=== PATIENT | male | born 1965 | race Caucasian/White ===

== ENCOUNTER 2019-07-24 11:19 | Inpatient (IN) | payer MEDICAID, MEDICARE ==
[~2019-07-24] VITALS: Ht 180.3 cm; Wt 84.1 kg
[~2019-07-24 11:19] MED LIST: GUAN1TAB PO; IBUP-1984 PO; LISI-222 PO; TRAZ-91 PO
[2019-07-24 12:36] LABS: BASOPHILS # (AUTO) 0.1 X10'3 (0-0.2); EOSINOPHILS # (AUTO) 0.1 X10'3 (0-0.9); HEMATOCRIT 30.5 % (42.0-52.0); LYMPHOCYTES # (AUTO) 1.6 X10'3 (1.1-4.8); LYMPHOCYTES % (AUTO) 13.8 % (21-51); MEAN CORPUSCULAR HEMOGLOBIN 30.9 PG (27.0-31.0); MEAN CORPUSCULAR HGB CONC 32.7 g/dL (33.0-36.5); MEAN CORPUSCULAR VOLUME 94.3 FL (78-98); MEAN PLATELET VOLUME 7.6 FL (7.4-10.4); MONOCYTES # (AUTO) 1.2 X10'3 (0-0.9); MONOCYTES % (AUTO) 10.9 % (2-12); NEUTROPHILS # (AUTO) 8.3 X10'3 (1.8-7.7); NEUTROPHILS % (AUTO) 73.3 % (42-75); PLATELET COUNT 203 X10'3 (140-440); RED BLOOD COUNT 3.24 X10'6 (4.70-6.10); RED CELL DISTRIBUTION WIDTH 18.5 % (11.5-14.5); WHITE BLOOD COUNT 11.3 X10'3 (4.5-11.0)
[2019-07-24 12:41] LABS: ALANINE AMINOTRANSFERASE 52 U/L (12-78); ALBUMIN 2.2 G/DL (3.4-5.0); ALBUMIN/GLOBULIN RATIO 0.4 (1.1-1.5); ALKALINE PHOSPHATASE 123 IU/L (46-116); ANION GAP 9 (8-16); ASPARTATE AMINO TRANSFERASE 155 U/L (10-37); BILIRUBIN,TOTAL 1.8 MG/DL (0.1-1.0); BLOOD UREA NITROGEN 7 MG/DL (7-18); BUN/CREATININE RATIO 6.5 (5.4-32.0); CHLORIDE 105 MMOL/L (99-107); CREATININE 1.07 MG/DL (0.60-1.10); GLUCOSE 117 MG/DL (70-104); LIPASE 703 U/L (73-393); POTASSIUM 3.8 MMOL/L (3.5-5.1); SODIUM 136 MMOL/L (135-145); TOTAL CARBON DIOXIDE 22.3 MMOL/L (24-32); TOTAL PROTEIN 8.3 G/DL (6.4-8.2); eGFR 72 ML/MIN
[2019-07-24 13:33] LABS: CLARITY,URINE CLEAR (Clear); GLUCOSE, URINE NEGATIVE (Neg); KETONES,URINE 15 mg/dl (Neg); LEUKOCYTE ESTERASE ,URINE TRACE (Neg); NITRITES, URINE NEGATIVE (Neg); OCCULT BLOOD,URINE NEGATIVE (Neg); PH,URINE 5.5 (4.8-8.0); PROTEIN,URINE TRACE mg/dl (Neg)
[2019-07-24 13:39] LABS: COLOR,URINE DARK YELLOW (Yellow); UA COLLECTION TYPE URINAL
[2019-07-24 13:41] LABS: BACTERIA,URINE FEW /HPF (Neg); HYALINE CASTS 0-3 /LPF (NEGATIVE); MUCUS STRANDS FEW /LPF (Neg); RBC,URINE NONE SEEN /HPF (0-2); SQUAMOUS EPITHELIAL CELL,UR FEW /LPF (FEW)
[2019-07-24 13:51] LABS: PARTIAL THROMBOPLASTIN TIME 31 SECONDS (22-32)
--- NOTE | 2019-07-24 14:51 | NUR ---
US at bedside
[2019-07-24] MEDS: piperacillin/tazo 4.5gm/100ml 100 ML IV SCH ×2 (15:37→20:00)
[2019-07-24] MEDS ORDERED: mag hydrox/Alum hydrox/simeth 30ml oral suspension PO PRN (16:05)
[2019-07-24] MEDS ORDERED: ondansetron/PF 4mg/2ml inj IV PRN (16:05)
[2019-07-24] MEDS ORDERED: magnesium hydroxide 30ml (MOM) UD suspension PO PRN (16:05)
[2019-07-24] MEDS ORDERED: morphine 2 MG/ML inj. syringe IV PRN ×2 (16:05)
[2019-07-24] MEDS ORDERED: acetaminophen 325mg tablet PO PRN (16:05)
[2019-07-24] MEDS ORDERED: HYDROcodone/acetaminophen 5mg/325mg tablet PO PRN (16:05)
[2019-07-24] MEDS ORDERED: HYDROcodone/acetaminophen 10/325mg tab PO PRN (16:05)
--- NOTE | 2019-07-24 16:17 | NUR ---
Dr. Nieves at bedside to do Paracentesis.
[2019-07-24] MEDS ORDERED: QUET200T PO (16:22)
[2019-07-24] MEDS ORDERED: LISI30TA4 PO (16:22)
[2019-07-24] MEDS ORDERED: FLUO20CA39 PO (16:23)
[2019-07-24] MEDS ORDERED: ARIP5TAB4 PO (16:23)
--- NOTE | 2019-07-24 17:01 | NUR ---
PT PARACENTSIS DRAINING INTO URINAL IT HAS NOT BEEN ABLE TO WORK WITH SXN. PT HOMER WELL AT THIS TIME
--- NOTE | 2019-07-24 17:06 | NUR ---
paracentesis is still draining slowly into urinal. pt states he is ok. no obvious distress.
[2019-07-24 17:39] LABS: GLUCOSE,BODY FLUID 98 MG/DL; LDH,BODY FLUID 62 U/L
--- NOTE | 2019-07-24 17:40 | NUR ---
pt had 1400 ml of fluid drained from paracentesis. the tubing was not showing much flow so after speaking with MD Pichardo he said the drain can be pulled. drain pulled and dressing applied to abd. pt states he doesn't feel much difference.
[2019-07-24 18:14] LABS: BF MESOTHELIAL CELLS FEW; BF RBC COUNT 524 /CU MM; BF WBC COUNT 104 /CU MM (0-1000); BFAPPEAR CLEAR; BFCOLOR YELLOW; BFVOLUME 6.5 ML; LYMPHOCYTES,BODY FLUID 48 %; MONOCYTES,BODY FLUID 30 %; NEUTROPHILS,BODY FLUID 22 %
[2019-07-24] MEDS ORDERED: dextrose 50%-water 50ml dispensing syringe IV PRN (18:20)
[2019-07-24] MEDS ORDERED: thiamine inj. 100 MG in normal saline 100ml IV soln 100 ML IV ONE (18:20)
[2019-07-24] MEDS ORDERED: LORazepam 2 mg/ml vial IV PRN ×2 (18:20)
[2019-07-24 18:30] VITALS: BP 159/97
--- NOTE | 2019-07-24 18:30 | NUR ---
Patient in room [facility]. I have received report from Yue Salazar RN and had the opportunity to ask questions and assume patient care.
--- NOTE | 2019-07-24 18:30 | NUR ---
Problems reprioritized. Patient report given, questions answered & plan of care reviewed with Lambert SANDERSON.
[2019-07-24] MEDS ORDERED: pneumococcal 23-VAL P-sac vacc 25 mcg/0.5ml vial IMVAC ONE (19:50)
[2019-07-24] MEDS: quetiapine 100mg tablet PO SCH (20:53)
[2019-07-24] MEDS ORDERED: non-formulary drug (Quetiapine Fumarate (Seroquel) 1 TAB) PO SCH (21:00)
[2019-07-25] VITALS: BP 101/62
[2019-07-25 06:26] LABS: BASOPHILS % (AUTO) 0.5 % (0-1); EOSINOPHILS # (AUTO) 0.2 X10'3 (0-0.9); EOSINOPHILS % (AUTO) 2.2 % (0-6); HEMATOCRIT 25.6 % (42.0-52.0); HEMOGLOBIN 8.7 g/dl (14.0-17.9); LYMPHOCYTES # (AUTO) 1.8 X10'3 (1.1-4.8); LYMPHOCYTES % (AUTO) 21.9 % (21-51); MEAN CORPUSCULAR HEMOGLOBIN 31.7 PG (27.0-31.0); MEAN CORPUSCULAR HGB CONC 33.9 g/dL (33.0-36.5); MEAN CORPUSCULAR VOLUME 93.4 FL (78-98); MEAN PLATELET VOLUME 7.5 FL (7.4-10.4); MONOCYTES # (AUTO) 0.9 X10'3 (0-0.9); NEUTROPHILS # (AUTO) 5.3 X10'3 (1.8-7.7); NEUTROPHILS % (AUTO) 64.4 % (42-75); PLATELET COUNT 158 X10'3 (140-440); RED BLOOD COUNT 2.74 X10'6 (4.70-6.10); RED CELL DISTRIBUTION WIDTH 18.5 % (11.5-14.5); WHITE BLOOD COUNT 8.2 X10'3 (4.5-11.0)
--- NOTE | 2019-07-25 06:30 | NUR ---
Problems reprioritized. Patient report given, questions answered & plan of care reviewed with Ijeoma SANDERSON.
[2019-07-25 07:00] LABS: ALANINE AMINOTRANSFERASE 41 U/L (12-78); ALBUMIN 1.8 G/DL (3.4-5.0); ALBUMIN/GLOBULIN RATIO 0.3 (1.1-1.5); ALKALINE PHOSPHATASE 99 IU/L (46-116); ANION GAP 7 (8-16); ASPARTATE AMINO TRANSFERASE 105 U/L (10-37); BILIRUBIN,TOTAL 2.1 MG/DL (0.1-1.0); BLOOD UREA NITROGEN 7 MG/DL (7-18); BUN/CREATININE RATIO 6.7 (5.4-32.0); CALCIUM 8.1 MG/DL (8.5-10.1); CHLORIDE 106 MMOL/L (99-107); CREATININE 1.05 MG/DL (0.60-1.10); GLUCOSE 79 MG/DL (70-104); LIPASE 489 U/L (73-393); MAGNESIUM 1.6 MG/DL (1.5-2.4); PHOSPHORUS 2.9 MG/DL (2.3-4.5); POTASSIUM 3.6 MMOL/L (3.5-5.1); SODIUM 138 MMOL/L (135-145); TOTAL CARBON DIOXIDE 24.8 MMOL/L (24-32); eGFR 74 ML/MIN
--- NOTE | 2019-07-25 07:15 | NUR ---
Patient in room [facility]. I have received report from BEAU SANDERSON and had the opportunity to ask questions and assume patient care.
--- NOTE | 2019-07-25 07:17 | NUR ---
REPORT FROM NIKI SANDERSON NOT BEAU SANDERSON
[2019-07-25 08:00] VITALS: BP 125/70
[2019-07-25] MEDS ORDERED: non-formulary drug (Lisinopril 1 TAB) PO SCH (08:00)
[2019-07-25] MEDS ORDERED: Permethrin Cream 60gm TP ONE (08:10)
[2019-07-25] MEDS ORDERED: Permethrin 1% 59ml topical rinse TP ONE ×2 (08:10)
[2019-07-25] MEDS: furosemide 40mg tablet PO SCH (08:55)
[2019-07-25] MEDS: multivitamins, therapeutics tablet PO SCH (08:55)
[2019-07-25] MEDS: lisinopril 10 MG tablet PO SCH (08:56)
[2019-07-25] MEDS: folic acid 1mg tablet PO SCH (08:56)
[2019-07-25] MEDS: aripiprazole 5mg tablet PO SCH (08:56)
[2019-07-25] MEDS: thiamine 100mg tablet PO SCH (08:56)
[2019-07-25] MEDS: piperacillin/tazo 4.5gm/100ml 100 ML IV SCH ×2 (08:59→21:06)
[2019-07-25] MEDS: spironolactone 50 MG tablet PO SCH (08:59)
[2019-07-25 11:00] VITALS: BP 106/59
--- NOTE | 2019-07-25 14:54 | NUR ---
PER DR CUNNINGHAM, PT. NEEDS PARACENTESIS. ACTIVE ORDER HAS BEEN IN SINCE 07-24-19.
--- NOTE | 2019-07-25 18:04 | NUR ---
Problems reprioritized. Patient report given, questions answered & plan of care reviewed with INES SANDERSON.
--- NOTE | 2019-07-25 18:20 | NUR ---
Patient in room [facility]. I have received report from Ijeoma Qureshi and had the opportunity to ask questions and assume patient care. Addendum: 07/25/19 at 1820 by Fallon Ridley RN Amended: Links added.
[2019-07-25 20:00] VITALS: BP 104/70
[2019-07-25] MEDS: lactobacillus rhamnosus 10,000 MMU CELLS/CAPSULE PO SCH (21:05)
[2019-07-25] MEDS: quetiapine 100mg tablet PO SCH (21:05)
--- NOTE | 2019-07-25 21:26 | NUR ---
pt on lice isolation was treated for it on dayshift. denies pain or discomfort. abd very distended. no complaints of pain at this time.
--- NOTE | 2019-07-25 23:00 | NUR ---
resting eyes closed no s&s of distress.
[2019-07-26] VITALS: BP 100/66
--- NOTE | 2019-07-26 01:00 | NUR ---
pt resting without changes remains on isolation
--- NOTE | 2019-07-26 03:00 | NUR ---
resting eyes closed without changes.
--- NOTE | 2019-07-26 04:38 | NUR ---
resting eyes closed without changes.
[2019-07-26 06:14] LABS: BASOPHILS % (AUTO) 0.5 % (0-1); EOSINOPHILS # (AUTO) 0.2 X10'3 (0-0.9); EOSINOPHILS % (AUTO) 2.6 % (0-6); HEMATOCRIT 26.5 % (42.0-52.0); LYMPHOCYTES # (AUTO) 1.9 X10'3 (1.1-4.8); LYMPHOCYTES % (AUTO) 21.4 % (21-51); MEAN CORPUSCULAR HEMOGLOBIN 31.5 PG (27.0-31.0); MEAN CORPUSCULAR HGB CONC 33.8 g/dL (33.0-36.5); MEAN CORPUSCULAR VOLUME 93.2 FL (78-98); MEAN PLATELET VOLUME 7.5 FL (7.4-10.4); MONOCYTES % (AUTO) 11.4 % (2-12); NEUTROPHILS # (AUTO) 5.7 X10'3 (1.8-7.7); NEUTROPHILS % (AUTO) 64.1 % (42-75); PLATELET COUNT 165 X10'3 (140-440); RED BLOOD COUNT 2.85 X10'6 (4.70-6.10); RED CELL DISTRIBUTION WIDTH 18.4 % (11.5-14.5); WHITE BLOOD COUNT 8.8 X10'3 (4.5-11.0)
--- NOTE | 2019-07-26 06:15 | NUR ---
Patient in room [facility]. I have received report from Fallon SANDERSON and had the opportunity to ask questions and assume patient care.
--- NOTE | 2019-07-26 06:16 | NUR ---
Problems reprioritized. Patient report given, questions answered & plan of care reviewed with Daisy Qureshi. Addendum: 07/26/19 at 0616 by Fallon Ridley RN Amended: Links added.
[2019-07-26 06:34] LABS: ALANINE AMINOTRANSFERASE 37 U/L (12-78); ALBUMIN 1.7 G/DL (3.4-5.0); ALBUMIN/GLOBULIN RATIO 0.3 (1.1-1.5); ALKALINE PHOSPHATASE 102 IU/L (46-116); ANION GAP 8 (8-16); ASPARTATE AMINO TRANSFERASE 90 U/L (10-37); BLOOD UREA NITROGEN 7 MG/DL (7-18); BUN/CREATININE RATIO 6.4 (5.4-32.0); CHLORIDE 105 MMOL/L (99-107); GLUCOSE 83 MG/DL (70-104); LIPASE 570 U/L (73-393); MAGNESIUM 1.5 MG/DL (1.5-2.4); PHOSPHORUS 3.5 MG/DL (2.3-4.5); POTASSIUM 3.2 MMOL/L (3.5-5.1); SODIUM 139 MMOL/L (135-145); TOTAL CARBON DIOXIDE 26.4 MMOL/L (24-32); TOTAL PROTEIN 6.9 G/DL (6.4-8.2); eGFR 70 ML/MIN
[2019-07-26 07:00] VITALS: BP 124/75
[2019-07-26 08:00] VITALS: BP_SYST 110
[2019-07-26] MEDS: folic acid 1mg tablet PO SCH (08:03)
[2019-07-26] MEDS: piperacillin/tazo 4.5gm/100ml 100 ML IV SCH (08:03)
[2019-07-26] MEDS: multivitamins, therapeutics tablet PO SCH (08:03)
[2019-07-26] MEDS: aripiprazole 5mg tablet PO SCH (08:03)
[2019-07-26] MEDS: lactobacillus rhamnosus 10,000 MMU CELLS/CAPSULE PO SCH (08:03)
[2019-07-26] MEDS: spironolactone 50 MG tablet PO SCH (08:04)
[2019-07-26] MEDS: furosemide 40mg tablet PO SCH (08:04)
[2019-07-26] MEDS: thiamine 100mg tablet PO SCH (08:05)
[2019-07-26] MEDS: lisinopril 10 MG tablet PO SCH (08:05)
[2019-07-26] MEDS ORDERED: SPIR50TA5 PO (08:32)
[2019-07-26] MEDS ORDERED: FURO40TA4 PO (08:32)
[2019-07-26 11:35] VITALS: BP 103/66
--- NOTE | 2019-07-26 12:46 | NUR ---
Page sent to Dr. Garsia: PAGER ID: [phone] MESSAGE: [id number] RE: Vamshi Brink, patient did not have para done, per IR he does not have enough fluid to perform procedure. Patient will be discharged per your order. Thanks, Daisy Pickett
--- NOTE | 2019-07-26 13:41 | NUR ---
Patient discharged at 1340, patient is homeless and was provided with a bus pass. Patient reviewed discharge packet before signing. Patient had no belongings other than a red double bag of belongings he did not think were his. Called ED, Lost and Found and Admitting to see if the patient's belongings were in another location. No belongings were located anywhere else in the hospital. Patient was given a written Rx for his new medications. PIVs were d/c'd with cannula intact. Patient was wheeled down by axillary and discharged. Discussed with Surgical Director the issue with the patients belongings, she is contact the ED for more information.
[2019-07-27 15:18] LABS: HEPATITIS C ANTIBODY 0.2 s/co ratio (0.0-0.9)
== END 2019-07-26 13:34 | disposition home or self-care (01) | DRG 432 ==
LOC: ER 11:20 → SUR 3N 17:59
PROVIDERS: ADMIT Internal Medicine; ATTEND Internal Medicine
PROC: 0W9G3ZZ Drainage of Peritoneal Cavity, Percutaneous Approach (ICD-10-PCS; principal; 2019-07-24)
PROC: 3E0234Z Introduction of Serum, Toxoid and Vaccine into Muscle, Percutaneous Approach (ICD-10-PCS; 2019-07-24)
DX: K70.31 Alcoholic cirrhosis of liver with ascites (principal); E43 Unspecified severe protein-calorie malnutrition; K72.90 Hepatic failure, unspecified without coma; B85.2 Pediculosis, unspecified; E88.09 Other disorders of plasma-protein metabolism, not elsewhere classified; F17.200 Nicotine dependence, unspecified, uncomplicated; K80.20 Calculus of gallbladder without cholecystitis without obstruction; F32.9 Major depressive disorder, single episode, unspecified; I10 Essential (primary) hypertension; D64.9 Anemia, unspecified; F10.20 Alcohol dependence, uncomplicated; F41.9 Anxiety disorder, unspecified; R74.8 Abnormal levels of other serum enzymes; Z59.0 Homelessness; Z79.899 Other long term (current) drug therapy; Z23 Encounter for immunization; Z71.41 Alcohol abuse counseling and surveillance of alcoholic
CPT/HCPCS: 36415; 49083; 74176; 76700; 76705; 80053; 81001; 82945; 83615; 83690; 83735; 84100; 85025; 85610; 85730; 86706; 86803; 87070; 87081; 87088; 89051; 90732; 99285; G0378; J2543; J3411

== ENCOUNTER 2019-08-15 12:20 | Emergency (ER) | payer MEDICARE ==
[~2019-08-15] VITALS: Ht 180.3 cm; Wt 84.0 kg
[~2019-08-15 12:20] MED LIST changes: +ARIP5TAB4 PO; +FLUO20CA39 PO; +FURO40TA4 PO; -GUAN1TAB PO; -IBUP-1984 PO; -LISI-222 PO; +LISI30TA4 PO; +QUET200T PO; +SPIR50TA5 PO; -TRAZ-91 PO
[2019-08-15 12:51] LABS: BASOPHILS # (AUTO) 0.1 X10'3 (0-0.2); EOSINOPHILS # (AUTO) 0.3 X10'3 (0-0.9); EOSINOPHILS % (AUTO) 1.9 % (0-6); HEMATOCRIT 29.3 % (42.0-52.0); HEMOGLOBIN 9.8 g/dl (14.0-17.9); LYMPHOCYTES # (AUTO) 2.2 X10'3 (1.1-4.8); LYMPHOCYTES % (AUTO) 16.6 % (21-51); MEAN CORPUSCULAR HEMOGLOBIN 31.2 PG (27.0-31.0); MEAN CORPUSCULAR HGB CONC 33.4 g/dL (33.0-36.5); MEAN CORPUSCULAR VOLUME 93.4 FL (78-98); MEAN PLATELET VOLUME 6.7 FL (7.4-10.4); MONOCYTES # (AUTO) 1.2 X10'3 (0-0.9); MONOCYTES % (AUTO) 8.8 % (2-12); NEUTROPHILS # (AUTO) 9.4 X10'3 (1.8-7.7); NEUTROPHILS % (AUTO) 71.7 % (42-75); PLATELET COUNT 260 X10'3 (140-440); RED BLOOD COUNT 3.13 X10'6 (4.70-6.10); RED CELL DISTRIBUTION WIDTH 17.1 % (11.5-14.5); WHITE BLOOD COUNT 13.1 X10'3 (4.5-11.0)
[2019-08-15 13:03] LABS: ALANINE AMINOTRANSFERASE 37 U/L (12-78); ALBUMIN 1.9 G/DL (3.4-5.0); ALBUMIN/GLOBULIN RATIO 0.3 (1.1-1.5); ALKALINE PHOSPHATASE 104 IU/L (46-116); ANION GAP 10 (8-16); ASPARTATE AMINO TRANSFERASE 103 U/L (10-37); BILIRUBIN,TOTAL 0.9 MG/DL (0.1-1.0); BLOOD UREA NITROGEN 4 MG/DL (7-18); BUN/CREATININE RATIO 4.6 (5.4-32.0); CALCIUM 7.8 MG/DL (8.5-10.1); CHLORIDE 106 MMOL/L (99-107); CREATININE 0.87 MG/DL (0.60-1.10); GLUCOSE 105 MG/DL (70-104); POTASSIUM 3.6 MMOL/L (3.5-5.1); SODIUM 137 MMOL/L (135-145); TOTAL CARBON DIOXIDE 21.1 MMOL/L (24-32); TOTAL PROTEIN 8.7 G/DL (6.4-8.2); eGFR > 90 ML/MIN
--- NOTE | 2019-08-15 13:14 | NUR ---
PT STOOD AT BEDSIDE USED URINAL, URINE SENT TO LABS PER ORDERS, SET UP FOR PARACENTESIS AT BEDSIDE.
[2019-08-15 13:20] LABS: CLARITY,URINE CLEAR (Clear); COLOR,URINE YELLOW (Yellow); GLUCOSE, URINE NEGATIVE (Neg); KETONES,URINE NEGATIVE (Neg); LEUKOCYTE ESTERASE ,URINE NEGATIVE (Neg); NITRITES, URINE NEGATIVE (Neg); OCCULT BLOOD,URINE NEGATIVE (Neg); PROTEIN,URINE NEGATIVE (Neg); UROBILINOGEN,URINE 0.2 E.U/dL (0.2-1.0)
[2019-08-15 13:22] LABS: UA COLLECTION TYPE VOIDED
[2019-08-15 13:37] LABS: LIPASE 427 U/L (73-393)
[2019-08-15 13:51] VITALS: BP 134/85
== END 2019-08-15 14:05 | disposition home or self-care (01) ==
LOC: ER 12:21
DX: K70.31 Alcoholic cirrhosis of liver with ascites (principal); F10.10 Alcohol abuse, uncomplicated; I12.9 Hypertensive chronic kidney disease with stage 1 through stage 4 chronic kidney disease, or unspecified chronic kidney disease; E11.22 Type 2 diabetes mellitus with diabetic chronic kidney disease; N18.9 Chronic kidney disease, unspecified; F41.9 Anxiety disorder, unspecified; F32.9 Major depressive disorder, single episode, unspecified; Z56.0 Unemployment, unspecified; Z59.0 Homelessness; Z79.899 Other long term (current) drug therapy
CPT/HCPCS: 36415; 49083; 80053; 80320; 81003; 83690; 85025; 85610; 99284; 99285

== ENCOUNTER 2019-08-31 18:35 | Emergency (ER) | payer MEDICARE ==
[~2019-08-31] VITALS: Ht 180.3 cm; Wt 82.0 kg
[2019-08-31 19:21] LABS: BASOPHILS # (AUTO) 0.1 X10'3 (0-0.2); BASOPHILS % (AUTO) 0.6 % (0-1); EOSINOPHILS # (AUTO) 0.2 X10'3 (0-0.9); LYMPHOCYTES % (AUTO) 16.3 % (21-51); MEAN CORPUSCULAR HEMOGLOBIN 31.3 PG (27.0-31.0); MEAN CORPUSCULAR HGB CONC 33.4 g/dL (33.0-36.5); MEAN CORPUSCULAR VOLUME 93.5 FL (78-98); MEAN PLATELET VOLUME 7.1 FL (7.4-10.4); MONOCYTES # (AUTO) 1.2 X10'3 (0-0.9); MONOCYTES % (AUTO) 10.3 % (2-12); NEUTROPHILS # (AUTO) 8.5 X10'3 (1.8-7.7); NEUTROPHILS % (AUTO) 70.8 % (42-75); PLATELET COUNT 278 X10'3 (140-440); RED BLOOD COUNT 3.21 X10'6 (4.70-6.10); RED CELL DISTRIBUTION WIDTH 15.2 % (11.5-14.5)
[2019-08-31 19:22] LABS: ALANINE AMINOTRANSFERASE 29 U/L (12-78); ALBUMIN 1.8 G/DL (3.4-5.0); ALBUMIN/GLOBULIN RATIO 0.2 (1.1-1.5); ALKALINE PHOSPHATASE 120 IU/L (46-116); ANION GAP 9 (8-16); ASPARTATE AMINO TRANSFERASE 88 U/L (10-37); BILIRUBIN,TOTAL 1.2 MG/DL (0.1-1.0); BLOOD UREA NITROGEN 6 MG/DL (7-18); BUN/CREATININE RATIO 6.7 (5.4-32.0); CALCIUM 8.1 MG/DL (8.5-10.1); CHLORIDE 103 MMOL/L (99-107); CREATININE 0.89 MG/DL (0.60-1.10); GLUCOSE 97 MG/DL (70-104); LIPASE 556 U/L (73-393); POTASSIUM 3.5 MMOL/L (3.5-5.1); SODIUM 135 MMOL/L (135-145); TOTAL CARBON DIOXIDE 23.1 MMOL/L (24-32); TOTAL PROTEIN 9.2 G/DL (6.4-8.2); eGFR 89 ML/MIN
--- NOTE | 2019-08-31 20:39 | NUR ---
paracentesis complete without incident - 4 liters removed - pt reports ease in breathing.
[2019-08-31] MEDS ORDERED: FURO40TA4 PO (20:52)
[2019-08-31] MEDS ORDERED: SPIR50TA5 PO (20:52)
[2019-08-31 21:00] VITALS: BP 138/92
== END 2019-08-31 21:02 | disposition home or self-care (01) ==
LOC: ER 18:35
DX: R18.8 Other ascites (principal); R00.0 Tachycardia, unspecified; I12.9 Hypertensive chronic kidney disease with stage 1 through stage 4 chronic kidney disease, or unspecified chronic kidney disease; N18.9 Chronic kidney disease, unspecified; F41.9 Anxiety disorder, unspecified; F32.9 Major depressive disorder, single episode, unspecified; F17.210 Nicotine dependence, cigarettes, uncomplicated; Z56.0 Unemployment, unspecified; Z59.0 Homelessness; Z79.899 Other long term (current) drug therapy
CPT/HCPCS: 36415; 49083; 80053; 82140; 83690; 85025; 85610; 99283; 99285

== ENCOUNTER 2019-09-09 12:05 | Emergency (ER) | payer MEDICARE ==
[~2019-09-09] VITALS: Ht 180.3 cm; Wt 84.1 kg
[~2019-09-09 12:05] MED LIST changes: +ARIP5TAB14 PO; -ARIP5TAB4 PO
--- NOTE | 2019-09-09 12:33 | NUR ---
PT STATES HE IS FEELING HOPELESS AND CAN'T THINK OF A REASON TO KEEP LIVING, TEARFUL. PT STATES HE GETS DEPRESSED AND HAS BEEN HAVING SUICIDAL THOUGHTS OFF AND ON, WHEN ASKED DURING GENERAL ASSESSMENT SCREENING. PT DENIES ACTIVE SUICIDE PLAN, HAS NO TIMELINE. STATES HE TRIED TO CUT HIS WRISTS AT 6 YEARS OF AGE, DENIES ATTEMPTS AN ADULT
[2019-09-09 12:45] LABS: BASOPHILS # (AUTO) 0.1 X10'3 (0-0.2); BASOPHILS % (AUTO) 0.6 % (0-1); EOSINOPHILS # (AUTO) 0.2 X10'3 (0-0.9); EOSINOPHILS % (AUTO) 1.4 % (0-6); HEMATOCRIT 29.2 % (42.0-52.0); HEMOGLOBIN 9.9 g/dl (14.0-17.9); LYMPHOCYTES % (AUTO) 14.3 % (21-51); MEAN CORPUSCULAR HEMOGLOBIN 31.5 PG (27.0-31.0); MEAN CORPUSCULAR HGB CONC 33.7 g/dL (33.0-36.5); MEAN CORPUSCULAR VOLUME 93.4 FL (78-98); MEAN PLATELET VOLUME 6.7 FL (7.4-10.4); MONOCYTES # (AUTO) 1.4 X10'3 (0-0.9); MONOCYTES % (AUTO) 10.2 % (2-12); NEUTROPHILS # (AUTO) 10.3 X10'3 (1.8-7.7); NEUTROPHILS % (AUTO) 73.5 % (42-75); PLATELET COUNT 275 X10'3 (140-440); RED BLOOD COUNT 3.13 X10'6 (4.70-6.10); RED CELL DISTRIBUTION WIDTH 15.2 % (11.5-14.5)
[2019-09-09 12:59] LABS: PARTIAL THROMBOPLASTIN TIME 31 SECONDS (22-32)
[2019-09-09 13:03] LABS: ALANINE AMINOTRANSFERASE 30 U/L (12-78); ALBUMIN 1.7 G/DL (3.4-5.0); ALBUMIN/GLOBULIN RATIO 0.2 (1.1-1.5); ALKALINE PHOSPHATASE 98 IU/L (46-116); ANION GAP 9 (8-16); ASPARTATE AMINO TRANSFERASE 77 U/L (10-37); BILIRUBIN,TOTAL 1.4 MG/DL (0.1-1.0); BLOOD UREA NITROGEN 8 MG/DL (7-18); BUN/CREATININE RATIO 8.1 (5.4-32.0); CHLORIDE 95 MMOL/L (99-107); CREATININE 0.99 MG/DL (0.60-1.10); GLUCOSE 103 MG/DL (70-104); LIPASE 494 U/L (73-393); POTASSIUM 3.7 MMOL/L (3.5-5.1); SODIUM 127 MMOL/L (135-145); TOTAL CARBON DIOXIDE 23.1 MMOL/L (24-32); TOTAL PROTEIN 9.3 G/DL (6.4-8.2); eGFR 79 ML/MIN
[2019-09-09 13:25] LABS: ETHANOL 0.136 GM/DL (0.0-0.010)
[2019-09-09] MEDS ORDERED: normal saline 1000ML IV soln IVB ONE (13:55)
[2019-09-09 15:04] LABS: CLARITY,URINE SLIGHTLY CLOUDY (Clear); COLOR,URINE DARK YELLOW (Yellow); GLUCOSE, URINE NEGATIVE (Neg); KETONES,URINE 15 mg/dl (Neg); LEUKOCYTE ESTERASE ,URINE NEGATIVE (Neg); NITRITES, URINE NEGATIVE (Neg); OCCULT BLOOD,URINE NEGATIVE (Neg); PROTEIN,URINE TRACE mg/dl (Neg); UA COLLECTION TYPE URINAL
[2019-09-09 15:10] LABS: URINE AMPHETAMINE SCREEN NEGATIVE (Neg); URINE BARBITUATE SCREEN NEGATIVE (Neg); URINE BENZODIAZEPINES SCREEN NEGATIVE (Neg); URINE CANNABINOID SCREEN NEGATIVE (Neg); URINE COCAINE SCREEN NEGATIVE (Neg); URINE METHADONE SCREEN NEGATIVE (Neg); URINE OPIATE SCREEN NEGATIVE (Neg); URINE PHENCYCLIDINE SCREEN NEGATIVE (Neg)
[2019-09-09 15:11] LABS: BACTERIA,URINE FEW /HPF (Neg); HYALINE CASTS 0-3 /LPF (NEGATIVE); MUCUS STRANDS MANY /LPF (Neg); SQUAMOUS EPITHELIAL CELL,UR FEW /LPF (FEW); TRANSITIONAL EPI CELLS,URINE FEW /HPF; WBC,URINE 0-4 /HPF (0-4)
--- NOTE | 2019-09-09 16:00 | NUR ---
Packet faxed to [facility].
--- NOTE | 2019-09-09 16:55 | NUR ---
Patient states he is very depressed and feeling hopeless. Patient does not have a plan. Patient is homeless. Patient states he drinks everyday but not as much as he used to. Patient denies ever having a seizure but states he has gone through ETOH withdrawal. Continue to monitor.
[2019-09-09] MEDS ORDERED: LORazepam 1 MG tablet PO PRN (18:05)
[2019-09-09] MEDS ORDERED: cloNIDine 0.1 mg tablet PO PRN (18:05)
[2019-09-09] MEDS ORDERED: haloperidol 5mg tablet PO PRN (18:05)
[2019-09-09] MEDS ORDERED: folic acid 1mg tablet PO SCH (20:00)
[2019-09-09] MEDS ORDERED: thiamine 100mg tablet PO SCH (20:00)
--- NOTE | 2019-09-09 22:15 | NUR ---
[id number]: Pt resting on and off during this time. During 1:1 with RN, pt states vague SI, unable to provide an acuity number from 1-10 and has no plan. Pt states "I just have a lot of pain and my living situation gets the best of me sometimes. This is no way to live." Pt states he is feeling better since he has had treatment for his ascites but continues to have stomach pain. "It's just always there. I am tired of it." Pt is homeless and has no local family, but states he has a some homeless peers he conisders friends. Pt status is discharged. Pt is sleeping at this time.
--- NOTE | 2019-09-10 01:42 | NUR ---
Pt sleeping comfortably. No signs of distress.
--- NOTE | 2019-09-10 04:03 | NUR ---
Pt sleeping on left side, no signs of distress.
[2019-09-10 05:47] VITALS: BP 129/86
== END 2019-09-10 06:20 | disposition home or self-care (01) ==
LOC: ER 12:06
DX: K70.31 Alcoholic cirrhosis of liver with ascites (principal); I10 Essential (primary) hypertension; F10.99 Alcohol use, unspecified with unspecified alcohol-induced disorder; E87.1 Hypo-osmolality and hyponatremia; I12.9 Hypertensive chronic kidney disease with stage 1 through stage 4 chronic kidney disease, or unspecified chronic kidney disease; N18.9 Chronic kidney disease, unspecified; F41.9 Anxiety disorder, unspecified; F32.9 Major depressive disorder, single episode, unspecified; F17.210 Nicotine dependence, cigarettes, uncomplicated; Z59.0 Homelessness; Z56.0 Unemployment, unspecified; Z79.899 Other long term (current) drug therapy; Y90.0 Blood alcohol level of less than 20 mg/100 ml
CPT/HCPCS: 36415; 49083; 80053; 80305; 80320; 81001; 83690; 85025; 85610; 85730; 99285; J7030

== ENCOUNTER 2019-09-29 12:39 | Inpatient (IN) | payer MEDICARE ==
[~2019-09-29] VITALS: Ht 180.3 cm; Wt 84.1 kg
[2019-09-29] MEDS ORDERED: furosemide 10 MG/1 ML 10ml inj IV ONE (12:50)
[2019-09-29] MEDS ORDERED: fentaNYL/PF 50MCG/1 ML 2ML syringe IV ONE (12:50)
[2019-09-29 13:13] LABS: BASOPHILS % (AUTO) 0.3 % (0-1); EOSINOPHILS # (AUTO) 0.1 X10'3 (0-0.9); EOSINOPHILS % (AUTO) 0.6 % (0-6); HEMATOCRIT 29.1 % (42.0-52.0); HEMOGLOBIN 9.7 g/dl (14.0-17.9); LYMPHOCYTES # (AUTO) 1.8 X10'3 (1.1-4.8); LYMPHOCYTES % (AUTO) 13.3 % (21-51); MEAN CORPUSCULAR HEMOGLOBIN 30.7 PG (27.0-31.0); MEAN CORPUSCULAR HGB CONC 33.3 g/dL (33.0-36.5); MEAN CORPUSCULAR VOLUME 92.2 FL (78-98); MEAN PLATELET VOLUME 6.2 FL (7.4-10.4); MONOCYTES # (AUTO) 1.3 X10'3 (0-0.9); MONOCYTES % (AUTO) 9.5 % (2-12); NEUTROPHILS # (AUTO) 10.3 X10'3 (1.8-7.7); NEUTROPHILS % (AUTO) 76.3 % (42-75); PLATELET COUNT 327 X10'3 (140-440); RED BLOOD COUNT 3.15 X10'6 (4.70-6.10); WHITE BLOOD COUNT 13.5 X10'3 (4.5-11.0)
[2019-09-29 13:32] LABS: ALANINE AMINOTRANSFERASE 26 U/L (12-78); ALBUMIN 1.7 G/DL (3.4-5.0); ALBUMIN/GLOBULIN RATIO 0.2 (1.1-1.5); ALKALINE PHOSPHATASE 87 IU/L (46-116); ANION GAP 12 (8-16); ASPARTATE AMINO TRANSFERASE 64 U/L (10-37); BILIRUBIN,TOTAL 1.6 MG/DL (0.1-1.0); BLOOD UREA NITROGEN 7 MG/DL (7-18); BUN/CREATININE RATIO 7.4 (5.4-32.0); CALCIUM 8.1 MG/DL (8.5-10.1); CHLORIDE 93 MMOL/L (99-107); CREATININE 0.94 MG/DL (0.60-1.10); GLUCOSE 104 MG/DL (70-104); POTASSIUM 3.9 MMOL/L (3.5-5.1); SODIUM 126 MMOL/L (135-145); TOTAL CARBON DIOXIDE 21.1 MMOL/L (24-32); TOTAL PROTEIN 8.7 G/DL (6.4-8.2); eGFR 84 ML/MIN
[2019-09-29 13:35] LABS: ETHANOL 0.016 GM/DL (0.0-0.010); TROPONIN I < 0.04 NG/ML (0.0-0.05)
[2019-09-29] MEDS ORDERED: lactulose 20gm/30ml cup PO ONE (13:45)
[2019-09-29] MEDS ORDERED: piperacillin/tazo 3.375gm/50ml 50 ML IV ONE (13:45)
[2019-09-29] MEDS ORDERED: SPIR50TA PO (14:26)
[2019-09-29] MEDS ORDERED: FURO-149 PO (14:26)
[2019-09-29] MEDS ORDERED: SPIR100T5 PO (14:26)
[2019-09-29] MEDS ORDERED: ondansetron/PF 4mg/2ml inj IV PRN (15:05)
[2019-09-29] MEDS ORDERED: magnesium 2GM in 50ml NS 50 ML IV PRN (15:05)
[2019-09-29] MEDS ORDERED: magnesium 4gm in 100ml NS 100 ML IV PRN (15:05)
[2019-09-29] MEDS ORDERED: magnesium Cl slow-release 64mg tablet PO PRN (15:05)
[2019-09-29 15:45] LABS: CLARITY,URINE CLEAR (Clear); COLOR,URINE YELLOW (Yellow); GLUCOSE, URINE NEGATIVE (Neg); KETONES,URINE NEGATIVE (Neg); LEUKOCYTE ESTERASE ,URINE NEGATIVE (Neg); NITRITES, URINE NEGATIVE (Neg); OCCULT BLOOD,URINE NEGATIVE (Neg); PH,URINE 6.5 (4.8-8.0); PROTEIN,URINE NEGATIVE (Neg); UA COLLECTION TYPE NON-SPECIFIED; UROBILINOGEN,URINE 0.2 E.U/dL (0.2-1.0)
--- NOTE | 2019-09-29 17:16 | NUR ---
called ER, they told me they will call back.
--- NOTE | 2019-09-29 17:29 | NUR ---
Patient in room ED 5. I have received report from Gilbert SANDERSON and had the opportunity to ask questions and assume patient care.
[2019-09-29 17:54] VITALS: BP 119/86
[2019-09-29 18:00] VITALS: BP 130/77
--- NOTE | 2019-09-29 18:15 | NUR ---
Problems reprioritized. Patient report given, questions answered & plan of care reviewed with Mimi SANDERSON.
--- NOTE | 2019-09-29 18:20 | NUR ---
Received patient report from KIN Clemons. Assumed patient care.
[2019-09-29 22:00] VITALS: BP 98/63
[2019-09-30 04:35] LABS: BASOPHILS # (AUTO) 0.1 X10'3 (0-0.2); BASOPHILS % (AUTO) 0.6 % (0-1); EOSINOPHILS # (AUTO) 0.2 X10'3 (0-0.9); EOSINOPHILS % (AUTO) 1.4 % (0-6); HEMATOCRIT 25.3 % (42.0-52.0); HEMOGLOBIN 8.8 g/dl (14.0-17.9); LYMPHOCYTES # (AUTO) 1.5 X10'3 (1.1-4.8); LYMPHOCYTES % (AUTO) 14.1 % (21-51); MEAN CORPUSCULAR HEMOGLOBIN 31.7 PG (27.0-31.0); MEAN CORPUSCULAR HGB CONC 34.9 g/dL (33.0-36.5); MEAN CORPUSCULAR VOLUME 90.8 FL (78-98); MEAN PLATELET VOLUME 6.1 FL (7.4-10.4); MONOCYTES # (AUTO) 1.1 X10'3 (0-0.9); MONOCYTES % (AUTO) 10.2 % (2-12); NEUTROPHILS % (AUTO) 73.7 % (42-75); PLATELET COUNT 307 X10'3 (140-440); RED BLOOD COUNT 2.78 X10'6 (4.70-6.10); WHITE BLOOD COUNT 10.8 X10'3 (4.5-11.0)
[2019-09-30 04:41] LABS: ALBUMIN 1.5 G/DL (3.4-5.0); ANION GAP 8 (8-16); BLOOD UREA NITROGEN 8 MG/DL (7-18); BUN/CREATININE RATIO 7.6 (5.4-32.0); CALCIUM 8.2 MG/DL (8.5-10.1); CHLORIDE 94 MMOL/L (99-107); CREATININE 1.05 MG/DL (0.60-1.10); GLUCOSE 85 MG/DL (70-104); MAGNESIUM 1.7 MG/DL (1.5-2.4); POTASSIUM 3.6 MMOL/L (3.5-5.1); SODIUM 128 MMOL/L (135-145); TOTAL CARBON DIOXIDE 26.2 MMOL/L (24-32); eGFR 74 ML/MIN
--- NOTE | 2019-09-30 06:14 | NUR ---
Patient report given, questions answered and plan of care reviewed with KIN Ludwig.
[2019-09-30 06:36] VITALS: BP 113/76
[2019-09-30] MEDS: CefTRIAXone/D5W-Rocephin 1gm 50 ML IV SCH (07:36)
[2019-09-30 10:34] VITALS: BP 107/74
[2019-09-30 18:00] VITALS: BP 104/74
--- NOTE | 2019-09-30 18:25 | NUR ---
Received report from from KIN Ludwig. Assumed patient care.
[2019-09-30 22:00] VITALS: BP 129/69
[2019-10-01 06:08] LABS: BASOPHILS # (AUTO) 0.1 X10'3 (0-0.2); BASOPHILS % (AUTO) 0.8 % (0-1); EOSINOPHILS # (AUTO) 0.2 X10'3 (0-0.9); EOSINOPHILS % (AUTO) 1.7 % (0-6); LYMPHOCYTES # (AUTO) 1.7 X10'3 (1.1-4.8); LYMPHOCYTES % (AUTO) 18.1 % (21-51); MEAN CORPUSCULAR HEMOGLOBIN 31.8 PG (27.0-31.0); MEAN CORPUSCULAR HGB CONC 34.8 g/dL (33.0-36.5); MEAN CORPUSCULAR VOLUME 91.4 FL (78-98); MONOCYTES # (AUTO) 1.2 X10'3 (0-0.9); MONOCYTES % (AUTO) 12.4 % (2-12); NEUTROPHILS # (AUTO) 6.4 X10'3 (1.8-7.7); PLATELET COUNT 263 X10'3 (140-440); RED BLOOD COUNT 2.51 X10'6 (4.70-6.10); RED CELL DISTRIBUTION WIDTH 15.2 % (11.5-14.5); WHITE BLOOD COUNT 9.5 X10'3 (4.5-11.0)
--- NOTE | 2019-10-01 06:12 | NUR ---
Patient report given, questions answered and plan of care reviewed with KIN Ludwig.
[2019-10-01 06:20] LABS: ALBUMIN 1.4 G/DL (3.4-5.0); ANION GAP 8 (8-16); BLOOD UREA NITROGEN 11 MG/DL (7-18); BUN/CREATININE RATIO 9.9 (5.4-32.0); CALCIUM 7.9 MG/DL (8.5-10.1); CHLORIDE 98 MMOL/L (99-107); CREATININE 1.11 MG/DL (0.60-1.10); GLUCOSE 94 MG/DL (70-104); MAGNESIUM 1.8 MG/DL (1.5-2.4); POTASSIUM 3.5 MMOL/L (3.5-5.1); SODIUM 131 MMOL/L (135-145); TOTAL CARBON DIOXIDE 25.2 MMOL/L (24-32); eGFR 69 ML/MIN
[2019-10-01 06:34] VITALS: BP 105/73
[2019-10-01] MEDS: CefTRIAXone/D5W-Rocephin 1gm 50 ML IV SCH (07:12)
[2019-10-01] MEDS: lisinopril 10 MG tablet PO SCH (11:17)
[2019-10-01] MEDS: aripiprazole 5mg tablet PO SCH (11:18)
--- NOTE | 2019-10-01 14:30 | NUR ---
Received patient report from Vani SANDERSON
[2019-10-01 18:00] VITALS: BP 108/75
--- NOTE | 2019-10-01 18:17 | NUR ---
Patient report given to Kayla Edwards RN
--- NOTE | 2019-10-01 18:38 | NUR ---
Patient in room [facility]24. I have received report from KIN Ledbetter and had the opportunity to ask questions and assume patient care.
[2019-10-01] MEDS: quetiapine 100mg tablet PO SCH (20:03)
[2019-10-01] MEDS: furosemide 40mg/4ml inj IV SCH (20:03)
[2019-10-01] MEDS: lactobacillus rhamnosus 10,000 MMU CELLS/CAPSULE PO SCH (20:03)
[2019-10-02] VITALS (9 sets, daily range): BP systolic 88–110; BP diastolic 59–75
--- NOTE | 2019-10-02 06:00 | NUR ---
Patient in room [facility]24. I have received report from Kayla Edwards RN and had the opportunity to ask questions and assume patient care.
--- NOTE | 2019-10-02 06:20 | NUR ---
Problems reprioritized. Patient report given, questions answered & plan of care reviewed with KIN Nguyen.
[2019-10-02 06:43] LABS: BASOPHILS # (AUTO) 0.1 X10'3 (0-0.2); BASOPHILS % (AUTO) 0.8 % (0-1); EOSINOPHILS # (AUTO) 0.2 X10'3 (0-0.9); HEMATOCRIT 22.8 % (42.0-52.0); HEMOGLOBIN 7.7 g/dl (14.0-17.9); LYMPHOCYTES # (AUTO) 1.9 X10'3 (1.1-4.8); LYMPHOCYTES % (AUTO) 24.4 % (21-51); MEAN CORPUSCULAR HEMOGLOBIN 31.3 PG (27.0-31.0); MEAN CORPUSCULAR VOLUME 92.1 FL (78-98); MEAN PLATELET VOLUME 6.3 FL (7.4-10.4); NEUTROPHILS # (AUTO) 4.6 X10'3 (1.8-7.7); NEUTROPHILS % (AUTO) 59.8 % (42-75); PLATELET COUNT 257 X10'3 (140-440); RED BLOOD COUNT 2.47 X10'6 (4.70-6.10); RED CELL DISTRIBUTION WIDTH 14.6 % (11.5-14.5); WHITE BLOOD COUNT 7.7 X10'3 (4.5-11.0)
[2019-10-02 06:53] LABS: ALBUMIN 1.4 G/DL (3.4-5.0); ANION GAP 8 (8-16); BLOOD UREA NITROGEN 11 MG/DL (7-18); BUN/CREATININE RATIO 9.9 (5.4-32.0); CALCIUM 7.8 MG/DL (8.5-10.1); CHLORIDE 101 MMOL/L (99-107); CREATININE 1.11 MG/DL (0.60-1.10); GLUCOSE 94 MG/DL (70-104); MAGNESIUM 1.8 MG/DL (1.5-2.4); POTASSIUM 3.4 MMOL/L (3.5-5.1); SODIUM 135 MMOL/L (135-145); eGFR 69 ML/MIN
[2019-10-02] MEDS ORDERED: potassium CL 10mEq/100ml bag 100 ML IV PRN (07:45)
[2019-10-02] MEDS ORDERED: potassium Cl 20 mEq SR tablet PO PRN (07:45)
[2019-10-02] MEDS: aripiprazole 5mg tablet PO SCH (07:52)
[2019-10-02] MEDS: lisinopril 10 MG tablet PO SCH (07:52)
[2019-10-02] MEDS: lactobacillus rhamnosus 10,000 MMU CELLS/CAPSULE PO SCH ×2 (07:52→20:28)
[2019-10-02] MEDS: furosemide 40mg/4ml inj IV SCH ×2 (07:52→20:00)
[2019-10-02] MEDS: CefTRIAXone/D5W-Rocephin 1gm 50 ML IV SCH (07:52)
[2019-10-02] MEDS: potassium Cl 20 mEq SR tablet PO PRN ×3 (07:52→21:19)
[2019-10-02] MEDS ORDERED: albumin (human) 25% 100 ML IV solution IV ONE (13:45)
--- NOTE | 2019-10-02 16:24 | NUR ---
Malnutrition consult. Patient presents with sepsis, abdominal pain for three months, history of EtOH liver disease and is currently homeless, social service consult made per MD note. pt continues to drink per H&P. He has a good appetite, eating 75-100% average. No malnutrition present. No weight loss recently per documented patient stated weights however weight fluctuations may occur d/t ascites, Pt does currently have ascites, documented as 4+ severe along with negative fluid balance. Would benefit from thiamine and folic acid in view of EtOH history. Pt is meeting nutrition needs and protein needs in view of sepsis; may benefit from low sodium diet in view of ascites, notified MD. Recommend: 1. In view of ascites may benefit from low sodium diet 2. Consider folic acid and thiamine in view of EtOH 3. Weight per rx Addendum: 10/02/19 at [address] Amended: Links added.
--- NOTE | 2019-10-02 18:19 | NUR ---
Patient in room [facility] 4024. I have received report from Nicole SANDERSON and had the opportunity to ask questions and assume patient care.
--- NOTE | 2019-10-02 18:30 | NUR ---
Patient in room [facility] 4024. I have received report from KIN Nguyen and had the opportunity to ask questions and assume patient care.
[2019-10-02] MEDS: quetiapine 100mg tablet PO SCH (20:28)
[2019-10-03 06:00] VITALS: BP 80/50
--- NOTE | 2019-10-03 06:24 | NUR ---
received report from kori sanz
--- NOTE | 2019-10-03 06:24 | NUR ---
Problems reprioritized. Patient report given, questions answered & plan of care reviewed with KIN Chaudhari.
[2019-10-03 06:25] LABS: BASOPHILS # (AUTO) 0.1 X10'3 (0-0.2); BASOPHILS % (AUTO) 0.8 % (0-1); EOSINOPHILS # (AUTO) 0.2 X10'3 (0-0.9); EOSINOPHILS % (AUTO) 1.9 % (0-6); HEMATOCRIT 22.8 % (42.0-52.0); HEMOGLOBIN 7.7 g/dl (14.0-17.9); LYMPHOCYTES # (AUTO) 1.9 X10'3 (1.1-4.8); LYMPHOCYTES % (AUTO) 21.8 % (21-51); MEAN CORPUSCULAR HEMOGLOBIN 31.1 PG (27.0-31.0); MEAN CORPUSCULAR HGB CONC 33.8 g/dL (33.0-36.5); MEAN CORPUSCULAR VOLUME 91.8 FL (78-98); MEAN PLATELET VOLUME 6.1 FL (7.4-10.4); MONOCYTES # (AUTO) 1.1 X10'3 (0-0.9); MONOCYTES % (AUTO) 12.6 % (2-12); NEUTROPHILS # (AUTO) 5.4 X10'3 (1.8-7.7); NEUTROPHILS % (AUTO) 62.9 % (42-75); PLATELET COUNT 263 X10'3 (140-440); RED BLOOD COUNT 2.49 X10'6 (4.70-6.10); RED CELL DISTRIBUTION WIDTH 15.1 % (11.5-14.5); WHITE BLOOD COUNT 8.5 X10'3 (4.5-11.0)
[2019-10-03 06:34] LABS: % IRON SATURATION 13 % (11-46); IRON 25 UG/DL (53-167); TOTAL IRON BINDING CAPACITY 197 UG/DL (259-388)
[2019-10-03 06:42] LABS: ALANINE AMINOTRANSFERASE 26 U/L (12-78); ALBUMIN 1.4 G/DL (3.4-5.0); ALBUMIN/GLOBULIN RATIO 0.3 (1.1-1.5); ALKALINE PHOSPHATASE 79 IU/L (46-116); ANION GAP 6 (8-16); ASPARTATE AMINO TRANSFERASE 68 U/L (10-37); BILIRUBIN,DIRECT 0.4 MG/DL (0-0.3); BLOOD UREA NITROGEN 10 MG/DL (7-18); BUN/CREATININE RATIO 9.5 (5.4-32.0); CALCIUM 7.6 MG/DL (8.5-10.1); CHLORIDE 101 MMOL/L (99-107); CREATININE 1.05 MG/DL (0.60-1.10); GLUCOSE 89 MG/DL (70-104); MAGNESIUM 1.6 MG/DL (1.5-2.4); POTASSIUM 3.7 MMOL/L (3.5-5.1); SODIUM 133 MMOL/L (135-145); TOTAL CARBON DIOXIDE 25.8 MMOL/L (24-32); TOTAL PROTEIN 6.9 G/DL (6.4-8.2); eGFR 74 ML/MIN
[2019-10-03] MEDS: CefTRIAXone/D5W-Rocephin 1gm 50 ML IV SCH (07:20)
[2019-10-03] MEDS: aripiprazole 5mg tablet PO SCH (07:22)
[2019-10-03] MEDS: lactobacillus rhamnosus 10,000 MMU CELLS/CAPSULE PO SCH (07:22)
[2019-10-03 07:30] VITALS: BP 90/60
[2019-10-03] MEDS: furosemide 40mg/4ml inj IV SCH (07:30)
[2019-10-03] MEDS: lisinopril 10 MG tablet PO SCH (07:30)
[2019-10-03 10:00] VITALS: BP 108/67
[2019-10-03] MEDS ORDERED: LACT10SO PO (12:05)
[2019-10-03] MEDS ORDERED: SPIR50TA PO (12:05)
[2019-10-03] MEDS ORDERED: CEFD300C3 PO (12:05)
[2019-10-03] MEDS ORDERED: PROP10TA10 PO (12:05)
[2019-10-03] MEDS ORDERED: FURO-149 PO (12:05)
--- NOTE | 2019-10-03 12:34 | NUR ---
PT D/C W/INSTRUCTIONS UNDERSTANDING OF INSTRUCTIONS, AND W/ALL BELONGINGS, INCLUDING CLOTHING AND A LUNCH, IN WHEELCHAIR ACCOMPANIED BY NURSING STAFF TO CAB TO GO TO [facility] AND F/U W/PCP
== END 2019-10-03 12:30 | disposition home or self-care (01) | DRG 871 ==
LOC: ER 12:40 → ED HOLD 15:04 → EDBEDREQ 17:17 → ORTHO 4S 17:45
PROVIDERS: ADMIT Internal Medicine; ATTEND Hospitalist
PROC: 0W9G3ZZ Drainage of Peritoneal Cavity, Percutaneous Approach (ICD-10-PCS; principal; 2019-10-02)
DX: A41.9 Sepsis, unspecified organism (principal); K65.2 Spontaneous bacterial peritonitis; E87.1 Hypo-osmolality and hyponatremia; F10.129 Alcohol abuse with intoxication, unspecified; I12.9 Hypertensive chronic kidney disease with stage 1 through stage 4 chronic kidney disease, or unspecified chronic kidney disease; K70.31 Alcoholic cirrhosis of liver with ascites; F32.9 Major depressive disorder, single episode, unspecified; F41.9 Anxiety disorder, unspecified; D64.9 Anemia, unspecified; E87.70 Fluid overload, unspecified; F17.200 Nicotine dependence, unspecified, uncomplicated; N18.9 Chronic kidney disease, unspecified; Z82.49 Family history of ischemic heart disease and other diseases of the circulatory system; Z83.3 Family history of diabetes mellitus; Z59.0 Homelessness; Z79.899 Other long term (current) drug therapy
CPT/HCPCS: 36415; 49083; 71045; 80048; 80053; 80076; 80320; 81003; 82140; 83540; 83550; 83605; 83735; 84145; 84484; 85025; 85610; 87040; 87081; 93005; 96365; 96375; 99285; G0378; J0696; J1940; J2543; J3010; P9047

== ENCOUNTER 2019-10-13 01:12 | Emergency (ER) | payer MEDICARE ==
[~2019-10-13] VITALS: Ht 180.3 cm; Wt 81.0 kg
[~2019-10-13 01:12] MED LIST changes: +CEFD300C3 PO; +FURO-149 PO; -FURO40TA4 PO; +LACT10SO PO; -LISI30TA4 PO; +PROP10TA10 PO; +SPIR50TA PO; -SPIR50TA5 PO
[2019-10-13 01:38] LABS: BASOPHILS # (AUTO) 0.1 X10'3 (0-0.2); BASOPHILS % (AUTO) 0.7 % (0-1); EOSINOPHILS # (AUTO) 0.3 X10'3 (0-0.9); EOSINOPHILS % (AUTO) 2.7 % (0-6); HEMATOCRIT 24.8 % (42.0-52.0); HEMOGLOBIN 8.4 g/dl (14.0-17.9); LYMPHOCYTES # (AUTO) 2.6 X10'3 (1.1-4.8); LYMPHOCYTES % (AUTO) 24.1 % (21-51); MEAN CORPUSCULAR HEMOGLOBIN 30.2 PG (27.0-31.0); MEAN CORPUSCULAR HGB CONC 33.9 g/dL (33.0-36.5); MEAN CORPUSCULAR VOLUME 89.3 FL (78-98); MEAN PLATELET VOLUME 6.7 FL (7.4-10.4); MONOCYTES % (AUTO) 9.1 % (2-12); NEUTROPHILS # (AUTO) 6.9 X10'3 (1.8-7.7); NEUTROPHILS % (AUTO) 63.4 % (42-75); PLATELET COUNT 327 X10'3 (140-440); RED BLOOD COUNT 2.78 X10'6 (4.70-6.10); RED CELL DISTRIBUTION WIDTH 15.1 % (11.5-14.5); WHITE BLOOD COUNT 10.9 X10'3 (4.5-11.0)
[2019-10-13 01:42] LABS: ALANINE AMINOTRANSFERASE 35 U/L (12-78); ALBUMIN 1.8 G/DL (3.4-5.0); ALBUMIN/GLOBULIN RATIO 0.3 (1.1-1.5); ALKALINE PHOSPHATASE 117 IU/L (46-116); ANION GAP 9 (8-16); ASPARTATE AMINO TRANSFERASE 76 U/L (10-37); BLOOD UREA NITROGEN 8 MG/DL (7-18); BUN/CREATININE RATIO 7.5 (5.4-32.0); CALCIUM 8.2 MG/DL (8.5-10.1); CHLORIDE 109 MMOL/L (99-107); CREATININE 1.07 MG/DL (0.60-1.10); GLUCOSE 77 MG/DL (70-104); LIPASE 947 U/L (73-393); POTASSIUM 3.5 MMOL/L (3.5-5.1); SODIUM 140 MMOL/L (135-145); TOTAL CARBON DIOXIDE 21.7 MMOL/L (24-32); TOTAL PROTEIN 8.6 G/DL (6.4-8.2); eGFR 72 ML/MIN
--- NOTE | 2019-10-13 02:12 | NUR ---
PT GIVEN URINAL AND ASKED TO PROVIDE URINE SAMPLE. HE STATES HE DOESN'T THINK HE CAN VOID AT THIS TIME. ENCOURAGED HIM TO AT LEAST TRY.
[2019-10-13 02:29] LABS: CLARITY,URINE CLEAR (Clear); COLOR,URINE YELLOW (Yellow); GLUCOSE, URINE NEGATIVE (Neg); KETONES,URINE NEGATIVE (Neg); LEUKOCYTE ESTERASE ,URINE NEGATIVE (Neg); NITRITES, URINE NEGATIVE (Neg); OCCULT BLOOD,URINE TRACE-INTACT (Neg); PH,URINE 6.5 (4.8-8.0); PROTEIN,URINE NEGATIVE (Neg)
[2019-10-13 02:30] LABS: UA COLLECTION TYPE VOIDED
[2019-10-13 02:36] LABS: BACTERIA,URINE FEW /HPF (Neg); RBC,URINE 0-2 /HPF (0-2); SQUAMOUS EPITHELIAL CELL,UR FEW /LPF (FEW); WBC,URINE 0-4 /HPF (0-4)
[2019-10-13 02:37] LABS: HYALINE CASTS 0-3 /LPF (NEGATIVE); MUCUS STRANDS FEW /LPF (Neg)
[2019-10-13] MEDS ORDERED: ONDA8TAB13 PO (02:45)
[2019-10-13 02:50] VITALS: BP 124/84
== END 2019-10-13 02:52 | disposition home or self-care (01) ==
LOC: ER 01:13
DX: K86.1 Other chronic pancreatitis (principal); R11.10 Vomiting, unspecified; I10 Essential (primary) hypertension; F41.9 Anxiety disorder, unspecified; F32.9 Major depressive disorder, single episode, unspecified; F10.99 Alcohol use, unspecified with unspecified alcohol-induced disorder; N18.9 Chronic kidney disease, unspecified; Z87.891 Personal history of nicotine dependence; Z56.0 Unemployment, unspecified; Z59.0 Homelessness; Z79.899 Other long term (current) drug therapy; Y90.9 Presence of alcohol in blood, level not specified
CPT/HCPCS: 36415; 80053; 81001; 83690; 85025; 99284

== ENCOUNTER 2019-11-20 07:33 | Emergency (ER) | payer MEDICARE ==
[~2019-11-20] VITALS: Ht 180.3 cm; Wt 84.1 kg
[~2019-11-20 07:33] MED LIST changes: -CEFD300C3 PO; +ONDA8TAB13 PO; -PROP10TA10 PO
--- NOTE | 2019-11-20 07:50 | NUR ---
Dr Hernandez at bedside.
[2019-11-20] MEDS ORDERED: proparacaine 0.5% ophthalmic drops 15ml EACHEYE ONE (08:45)
--- NOTE | 2019-11-20 08:50 | NUR ---
Paracentesis initiated by Dr Hernandez at 0820. 6L of fluid removed via paracentesis. Patient tolerated well.
[2019-11-20 08:54] VITALS: BP 170/107
== END 2019-11-20 09:21 | disposition home or self-care (01) ==
LOC: ER 07:33
DX: R18.8 Other ascites (principal); I12.9 Hypertensive chronic kidney disease with stage 1 through stage 4 chronic kidney disease, or unspecified chronic kidney disease; N18.9 Chronic kidney disease, unspecified; Z59.0 Homelessness; Z56.0 Unemployment, unspecified; Z79.899 Other long term (current) drug therapy
CPT/HCPCS: 49083; 99285